=== PATIENT | female | born 1985 | race Caucasian/White ===

== ENCOUNTER 2022-07-13 07:10 | Inpatient (IN) | payer BC ==
[2022-07-13] MEDS ORDERED: ELECTROLYTE-148 SOLN 1,000 ML IV SCH (08:45)
[2022-07-13] MEDS ORDERED: OXYTOCIN 30 UNITS in 0.9% NS 30 UNIT/500 ML INFUS.BAG IVPB SCH (08:45)
[2022-07-13] MEDS ORDERED: OXYTOCIN 30 UNITS in 0.9% NS 30 UNIT/500 ML INFUS.BAG IVPB ONE (09:06)
[2022-07-13 09:25] VITALS: BMI 26.6
[2022-07-13] MEDS ORDERED: FENTANYL/BUPIVACAINE/NS/PF - PCEA - 50 ML DISP.SYRIN EP ONE (14:00)
[2022-07-13] MEDS ORDERED: BUPIVACAINE HCL/PF 0.25% (2.5MG/ML) 10 ML VIAL ONE (14:33)
[2022-07-13] MEDS ORDERED: NALOXONE HCL 0.4 MG/ML VIAL IVPUSH PRN (15:07)
[2022-07-13] MEDS ORDERED: FENTANYL/BUPIVACAINE/NS/PF - PCEA - 50 ML DISP.SYRIN EP SCH (15:15)
[2022-07-13] MEDS ORDERED: LIDOCAINE HCL 1% PRESERVATIVE FREE - 30ML VIAL ONE (15:51)
[2022-07-13] MEDS ORDERED: OXYTOCIN 20 UNITS in 0.9% NS 20 UNIT/1,000 ML INFUS.BAG IV ONE (15:51)
[2022-07-13] MEDS ORDERED: METHYLERGONOVINE MALEATE 0.2 MG/1 ML AMP IM PRN (17:49)
[2022-07-13] MEDS ORDERED: oxyCODONE HCL 5 MG TABLET PO PRN (17:49)
[2022-07-13] MEDS ORDERED: BISACODYL 10 MG SUPP.RECT RC PRN (17:49)
[2022-07-13] MEDS ORDERED: ACETAMINOPHEN 325 MG TABLET (FP) PO PRN (17:49)
[2022-07-13] MEDS ORDERED: BENZOCAINE 28 GM HEMORRHOIDAL OINTMENT TP PRN (17:49)
[2022-07-13] MEDS ORDERED: OXYTOCIN 20 UNITS in 0.9% NS 20 UNIT/1,000 ML INFUS.BAG IV SCH (18:00)
[2022-07-13] MEDS ORDERED: IBUPROFEN 600 MG TABLET (FP) PO ONE (18:34)
[2022-07-13] MEDS: IBUPROFEN 600 MG TABLET (FP) PO PRN (18:35)
[2022-07-14] MEDS: IBUPROFEN 600 MG TABLET (FP) PO PRN ×5 (00:23→22:04)
[2022-07-14] MEDS: WITCH HAZEL 50% (TUCKS) 40 PAD/JAR PAD TP PRN (00:24)
[2022-07-14] MEDS: BENZOCAINE 20% 57 GM BOTTLE TP PRN (00:24)
[2022-07-14 07:37] LABS: BASO % 0.5 % (0-2.0); EOS % 1.1 % (0-4.5); HEMATOCRIT 26.3 % (32.4-45.2); HEMOGLOBIN 8.5 GM/dL (10.7-15.3); LYMPH % 11.7 % (8-40); MCH 25.2 pg (25.7-33.7); MCHC 32.3 g/dl (32.0-36.0); MEAN PLT VOLUME 7.5 fl (7.5-11.1); MONO % 5.7 % (3.8-10.2); PLATELET COUNT 234 10^3/uL (134-434); RBC 3.38 M/mm3 (3.60-5.2); RDW 16.2 % (11.6-15.6); WHITE BLOOD COUNT 14.5 K/mm3 (4.0-10.0)
[2022-07-14 22:00] VITALS: RESP 18
[2022-07-14] MEDS ORDERED: SENNOSIDES/DOCUSATE COMBO (SENNA PLUS) TABLET (UD) PO PRN (22:00)
[2022-07-15] MEDS: IBUPROFEN 600 MG TABLET (FP) PO PRN (06:36)
[2022-07-15] MEDS: BENZOCAINE 20% 57 GM BOTTLE TP PRN (11:28)
[2022-07-15] MEDS: WITCH HAZEL 50% (TUCKS) 40 PAD/JAR PAD TP PRN (11:28)
[2022-07-15 11:55] VITALS: BP 106/67; PULSE 81; TEMP 97.6
== END 2022-07-15 12:05 | disposition home or self-care (01) | DRG 807 ==
LOC: JLDR 07:10 → J3W 19:59
PROVIDERS: ADMIT Specialist; ATTEND Specialist
PROC: 10E0XZZ Delivery of Products of Conception, External Approach (ICD-10-PCS; principal; 2022-07-13)
PROC: 0W8NXZZ Division of Female Perineum, External Approach (ICD-10-PCS; 2022-07-13)
PROC: 10907ZC Drainage of Amniotic Fluid, Therapeutic from Products of Conception, Via Natural or Artificial Opening (ICD-10-PCS; 2022-07-13)
DX: O80 Encounter for full-term uncomplicated delivery (principal); Z37.0 Single live birth; Z3A.39 39 weeks gestation of pregnancy
CPT/HCPCS: 36415; 59409; 85025

== ENCOUNTER 2024-06-28 07:45 | Inpatient (IN) | payer OTHER ==
[2024-06-28] MEDS ORDERED: ELECTROLYTE-148 SOLN 1,000 ML IV SCH (08:30)
[2024-06-28] MEDS: LACTATED RINGERS SOLUTION 1,000 ML IV SCH (08:30)
[2024-06-28 08:58] VITALS: BMI 27.1
[2024-06-28] MEDS ORDERED: OXYTOCIN 30 UNITS in 0.9% NS 30 UNIT/500 ML INFUS.BAG IVPB ONE (09:19)
[2024-06-28] MEDS: OXYTOCIN 30 UNITS in 0.9% NS 30 UNIT/500 ML INFUS.BAG IVPB SCH (09:30)
[2024-06-28 09:51] LABS: BASO % 0.5 % (0-2.0); EOS % 1.4 % (0-4.5); HEMOGLOBIN 9.2 GM/dL (10.7-15.3); LYMPH % 16.6 % (8-40); MCH 25.7 pg (25.7-33.7); MCHC 32.9 g/dl (32.0-36.0); MEAN CELL VOLUME 78.2 fl (80-96); MEAN PLT VOLUME 7.6 fl (7.5-11.1); NEUT % 76.5 % (42.8-82.8); PLATELET COUNT 219 10^3/uL (134-434); RBC 3.58 M/mm3 (3.60-5.2); WHITE BLOOD COUNT 10.7 K/mm3 (4.0-10.0)
[2024-06-28 10:00] LABS: INR 0.95 (0.83-1.09); PROTHROMBIN TIME (PATIENT) 10.7 SEC (9.7-13.0)
[2024-06-28 10:03] LABS: ACTIVATED PTT 26.8 SECONDS (25.2-36.5)
[2024-06-28 10:16] LABS: POTASSIUM 4.1 mmol/L (3.5-5.1)
[2024-06-28 10:17] LABS: CALCIUM 8.6 mg/dL (8.5-10.1)
[2024-06-28 10:18] LABS: BLOOD UREA NITROGEN 9.8 mg/dL (7-18)
[2024-06-28 10:22] LABS: CREATININE 0.7 mg/dL (0.55-1.3)
[2024-06-28 11:24] LABS: SYPHILIS W/ RPR CONF NON-REACTIVE (NONREACTIVE)
[2024-06-28 11:52] LABS: HIV INTERPRETATION NEGATIVE (NEGATIVE)
[2024-06-28] MEDS ORDERED: FENTANYL/BUPIVACAINE/NS/PF - PCEA - 50 ML DISP.SYRIN EP ONE (12:25)
[2024-06-28] MEDS: FENTANYL/BUPIVACAINE/NS/PF - PCEA - 50 ML DISP.SYRIN EP SCH (13:10)
[2024-06-28] MEDS ORDERED: NALOXONE HCL 0.4 MG/ML VIAL IVPUSH PRN (13:20)
[2024-06-28] MEDS ORDERED: OXYTOCIN 20 UNITS in 0.9% NS 20 UNIT/1,000 ML INFUS.BAG IV ONE (14:51)
[2024-06-28] MEDS ORDERED: oxyCODONE HCL 5 MG TABLET PO PRN (15:24)
[2024-06-28] MEDS ORDERED: BENZOCAINE 20% 57 GM BOTTLE TP PRN (15:24)
[2024-06-28] MEDS ORDERED: METHYLERGONOVINE MALEATE 0.2 MG/1 ML AMP IM PRN (15:24)
[2024-06-28] MEDS ORDERED: BISACODYL 10 MG SUPP.RECT RC PRN (15:24)
[2024-06-28] MEDS ORDERED: ACETAMINOPHEN 325 MG TABLET (FP) PO PRN (15:24)
[2024-06-28] MEDS ORDERED: BENZOCAINE 28 GM HEMORRHOIDAL OINTMENT TP PRN (15:24)
[2024-06-28] MEDS ORDERED: WITCH HAZEL 50% (TUCKS) 40 PAD/JAR PAD TP PRN (15:24)
[2024-06-28] MEDS: OXYTOCIN 20 UNITS in 0.9% NS 20 UNIT/1,000 ML INFUS.BAG IV SCH (15:38)
[2024-06-28 17:47] VITALS: RESP 18
[2024-06-28] MEDS: IBUPROFEN 600 MG TABLET (FP) PO PRN (19:21)
[2024-06-29 08:31] LABS: BASO % 0.5 % (0-2.0); HEMATOCRIT 26.4 % (32.4-45.2); HEMOGLOBIN 8.5 GM/dL (10.7-15.3); LYMPH % 15.8 % (8-40); MEAN CELL VOLUME 78.1 fl (80-96); MEAN PLT VOLUME 7.9 fl (7.5-11.1); MONO % 5.9 % (3.8-10.2); NEUT % 75.8 % (42.8-82.8); PLATELET COUNT 188 10^3/uL (134-434); RBC 3.38 M/mm3 (3.60-5.2); RDW 14.9 % (11.6-15.6); WHITE BLOOD COUNT 11.2 K/mm3 (4.0-10.0)
[2024-06-29] MEDS ORDERED: SENNOSIDES/DOCUSATE COMBO (SENNA PLUS) TABLET (UD) PO PRN (22:00)
[2024-06-30 09:04] VITALS: BP 117/71; PULSE 82; TEMP 98.3
== END 2024-06-30 12:00 | disposition home or self-care (01) | DRG 807 ==
LOC: JLDR 07:45 → J3W 17:43
PROVIDERS: ADMIT Specialist; ATTEND Specialist
PROC: 10E0XZZ Delivery of Products of Conception, External Approach (ICD-10-PCS; principal; 2024-06-28)
DX: O80 Encounter for full-term uncomplicated delivery (principal); Z3A.39 39 weeks gestation of pregnancy; Z37.0 Single live birth
CPT/HCPCS: 36415; 59409; 80048; 85025; 85610; 85730; 86780; 86850; 86900; 86901; 87389